=== PATIENT | male | born 1960 | race Caucasian/White ===

== ENCOUNTER 2016-11-26 18:47 | Inpatient (IN) | payer OTHER ==
[2016-11-26] MEDS ORDERED: SODIUM CHLORIDE 0.9% 1,000 ML IV STA ×3 (21:45→23:22)
[2016-11-26] MEDS ORDERED: SODIUM CHLORIDE 0.9% 500 ML IV STA (21:45)
[2016-11-26] MEDS ORDERED: ACETAMINOPHEN IV (For NPO) 1,000 MG in EMPTY BAG 1 BAG IVPB STA (21:45)
[2016-11-26] MEDS ORDERED: MORPHINE SULFATE 4 MG/ML SYRINGE IV STA (21:45)
[2016-11-26] MEDS ORDERED: KETOROLAC 30 MG/ML 1 ML VIAL IVP STA (21:45)
--- NOTE | 2016-11-26 21:52 | ED ---
General Adult HPI - General Chief complaint: Chest Pain Stated complaint: chest discomfort Time Seen by Provider: 11/26/16 21:21 Source: patient, RN notes reviewed, old records reviewed Mode of arrival: wheelchair Limitations: no limitations - History of Present Illness Initial comments: This is a 56-year-old male here for evaluation of chest pain, shortness of breath, elevated heart rate. Patient doesn't medical history significant for diabetes and hypertension. Initial cardiac evaluation years ago when he was initially diagnosed. Patient denies any sick contactsintravasation [place] drugs or alcohol. Patient does admit to increased cough and congestion, low- grade fever at home with chills. The heaviness and chest pressure started a few days ago and has been getting progressively worse. No significant modifying factors for symptoms - Related Data Home Medications Medication Instructions Recorded Confirmed Aspirin 81 mg PO DAILY 11/26/16 11/26/16 Cetirizine HCl [Zyrtec] 10 mg PO DAILY 11/26/16 11/26/16 Dapagliflozin/Metformin HCl 1 tab PO BID 11/26/16 11/26/16 [Xigduo Xr 5 mg-1,000 mg Tablet] Hydrochlorothiazide 12.5 mg PO DAILY 11/26/16 11/26/16 Liraglutide [Victoza 2-David] 0.6 mg SQ DAILY 11/26/16 11/26/16 Multivitamins, Thera [Multivitamin] 1 tab PO HS 11/26/16 11/26/16 Omeprazole 20 mg PO DAILY 11/26/16 11/26/16 Quinapril HCl 40 mg PO HS 11/26/16 11/26/16 Allergies Allergy/AdvReac Type Severity Reaction Status Date / Time hydrocodone [From [place]] Allergy Severe Anaphylaxis Verified 11/26/16 20:44 codeine Allergy Unknown Verified 11/26/16 20:44 Penicillins Allergy Nausea & Verified 11/26/16 20:44 Vomiting Review of Systems ROS Statement: Those systems with pertinent positive or pertinent negative responses have been documented in the HPI. ROS Other: All systems not noted in ROS Statement are negative. Past Medical History Past Medical History: Diabetes Mellitus, Hypertension History of Any Multi-Drug Resistant Organisms: None Reported Additional Past Surgical History / Comment(s): ear surgery Past Psychological History: No Psychological Hx Reported Smoking Status: Former smoker Past Alcohol Use History: None Reported Past Drug Use History: None Reported General Exam Limitations: no limitations General appearance: alert, in no apparent distress, anxious Head exam: Present: atraumatic, normocephalic, normal inspection Eye exam: Present: normal appearance, PERRL, EOMI. Absent: scleral icterus, conjunctival injection, periorbital swelling ENT exam: Present: normal exam, mucous membranes moist Neck exam: Present: normal inspection. Absent: tenderness, meningismus, lymphadenopathy Respiratory exam: Present: normal lung sounds bilaterally, accessory muscle use , decreased breath sounds. Absent: respiratory distress, wheezes, rales, rhonchi, stridor Cardiovascular Exam: Present: normal rhythm, tachycardia, normal heart sounds. Absent: systolic murmur, diastolic murmur, rubs, gallop, clicks GI/Abdominal exam: Present: soft, normal bowel sounds. Absent: distended, tenderness, guarding, rebound, rigid Extremities exam: Present: normal inspection, full ROM, normal capillary refill. Absent: tenderness, pedal edema, joint swelling, calf tenderness Back exam: Present: normal inspection Neurological exam: Present: alert, oriented X3, CN II-XII intact Psychiatric exam: Present: normal affect, normal mood Skin exam: Present: warm, dry, intact, normal color. Absent: rash Course Vital Signs 11/26/16 11/26/16 11/26/16 19:56 23:03 23:58 Temperature 101 F H 98.7 F Pulse Rate 120 H 114 H 110 H Respiratory 20 18 Rate Blood Pressure 140/84 114/75 O2 Sat by Pulse 93 L 93 L Oximetry 11/27/16 00:04 Temperature Pulse Rate 84 Respiratory Rate Blood Pressure O2 Sat by Pulse Oximetry - Reevaluation(s) Reevaluation #1: 11/27/16 00:47 Patient with no real improvement heart rate was symptomatically become fever did come down well Reevaluation #2: 11/27/16 00:47 Complaining of pain and symptoms are improving now, patient without chest pain Reevaluation #3: 11/27/16 00:47 Patient continue to have persistent tachycardia EKG Findings - EKG Comments: EKG Findings:: EKG shows sinus tachycardia rate 160, WV 132, QRS 80, QTC 453 Medical Decision Making - Medical Decision Making 50 formality ER for evaluation of (without chest pain and shortness of breath. Patient does have diabetes, patient is found of pneumonia with fever tachycardia and elevated white count. Patient given copious IV fluids treated appropriately for community-acquired pneumonia and will be admitted for coronary no pulmonary monitoring and hemodynamic monitoring - Lab Data Result diagrams: 11/26/16 21:10 11/26/16 21:10 Lab Results 11/26/16 11/26/16 11/26/16 Range/Units 21:10 21:10 21:10 WBC 14.5 H (3.8-10.6) k/uL RBC 4.97 (4.30-5.90) m/uL Hgb 14.6 (13.0-17.5) gm/dL Hct 44.5 (39.0-53.0) % MCV 89.7 (80.0-100.0) fL MCH 29.4 (25.0-35.0) pg MCHC 32.8 (31.0-37.0) g/dL RDW 13.4 (11.5-15.5) % Plt Count 359 (150-450) k/uL Neutrophils % 68 % Lymphocytes % 19 % Monocytes % 9 % Eosinophils % 2 % Basophils % 1 % Neutrophils # 9.9 H (1.3-7.7) k/uL Lymphocytes # 2.8 (1.0-4.8) k/uL Monocytes # 1.3 H (0-1.0) k/uL Eosinophils # 0.3 (0-0.7) k/uL Basophils # 0.1 (0-0.2) k/uL PT (9.0-12.0) sec INR (<1.1) APTT (22.0-30.0) sec D-Dimer (<0.60) mg/L FEU Sodium 139 (137-145) mmol/L Potassium 4.2 (3.5-5.1) mmol/L Chloride 100 (98-107) mmol/L Carbon Dioxide 25 (22-30) mmol/L Anion Gap 14 mmol/L BUN 19 (9-20) mg/dL Creatinine 0.90 (0.66-1.25) mg/dL Est GFR (MDRD) Af Amer >60 (>60 ml/min/1.73 sqM) Est GFR (MDRD) Non-Af >60 (>60 ml/min/1.73 sqM) Glucose 150 H (74-99) mg/dL Plasma Lactic Acid Rambo (0.7-2.0) mmol/L Calcium 9.4 (8.4-10.2) mg/dL Phosphorus 3.5 (2.5-4.5) mg/dL Magnesium 2.1 (1.6-2.3) mg/dL Total Bilirubin 1.2 (0.2-1.3) mg/dL AST 24 (17-59) U/L ALT 52 (21-72) U/L Alkaline Phosphatase 78 (38-126) U/L Total Creatine Kinase 98 (55-170) U/L CK-MB (CK-2) 0.4 (0.0-2.4) ng/mL CK-MB (CK-2) Rel Index 0.4 Troponin I <0.012 (0.000-0.034) ng/mL NT-Pro-B Natriuret Pep pg/mL Total Protein 7.0 (6.3-8.2) g/dL Albumin 3.9 (3.5-5.0) g/dL TSH 2.500 (0.465-4.680) mIU/L 11/26/16 11/26/16 11/26/16 Range/Units 21:10 21:10 21:10 WBC (3.8-10.6) k/uL RBC (4.30-5.90) m/uL Hgb (13.0-17.5) gm/dL Hct (39.0-53.0) % MCV (80.0-100.0) fL MCH (25.0-35.0) pg MCHC (31.0-37.0) g/dL RDW (11.5-15.5) % Plt Count (150-450) k/uL Neutrophils % % Lymphocytes % % Monocytes % % Eosinophils % % Basophils % % Neutrophils # (1.3-7.7) k/uL Lymphocytes # (1.0-4.8) k/uL Monocytes # (0-1.0) k/uL Eosinophils # (0-0.7) k/uL Basophils # (0-0.2) k/uL PT 10.8 (9.0-12.0) sec INR 1.1 (<1.1) APTT 24.8 (22.0-30.0) sec D-Dimer 0.21 (<0.60) mg/L FEU Sodium (137-145) mmol/L Potassium (3.5-5.1) mmol/L Chloride (98-107) mmol/L Carbon Dioxide (22-30) mmol/L Anion Gap mmol/L BUN (9-20) mg/dL Creatinine (0.66-1.25) mg/dL Est GFR (MDRD) Af Amer (>60 ml/min/1.73 sqM) Est GFR (MDRD) Non-Af (>60 ml/min/1.73 sqM) Glucose (74-99) mg/dL Plasma Lactic Acid Rambo 0.9 (0.7-2.0) mmol/L Calcium (8.4-10.2) mg/dL Phosphorus (2.5-4.5) mg/dL Magnesium (1.6-2.3) mg/dL Total Bilirubin (0.2-1.3) mg/dL AST (17-59) U/L ALT (21-72) U/L Alkaline Phosphatase (38-126) U/L Total Creatine Kinase (55-170) U/L CK-MB (CK-2) (0.0-2.4) ng/mL CK-MB (CK-2) Rel Index Troponin I (0.000-0.034) ng/mL NT-Pro-B Natriuret Pep 81 pg/mL Total Protein (6.3-8.2) g/dL Albumin (3.5-5.0) g/dL TSH (0.465-4.680) mIU/L - Radiology Data Radiology results: report reviewed (Chest x-ray two-view is positive for pneumonia right middle), image reviewed Critical Care Time Critical Care Time: Yes Total Critical Care Time: 31 Disposition Clinical Impression: Community acquired pneumonia, SIRS (systemic inflammatory response syndrome), Sepsis Disposition: ADMITTED IP TO THIS [facility] Condition: Fair Referrals: Nonstaff,Physician [Primary Care Provider] - 1-2 days
[2016-11-26 22:34] LABS: Basophils # (A) 0.1 k/uL (0-0.2); Basophils % (A) 1 %; CH 30.2; CHCM 33.8; Eosinophils # (A) 0.3 k/uL (0-0.7); Eosinophils % (A) 2 %; HCT 44.5 % (39.0-53.0); HDW 2.63; HGB 14.6 gm/dL (13.0-17.5); Luc % (Auto) 1; Lymphocytes # (A) 2.8 k/uL (1.0-4.8); Lymphocytes % (A) 19 %; MCH 29.4 pg (25.0-35.0); MCHC 32.8 g/dL (31.0-37.0); MCV 89.7 fL (80.0-100.0); Mean Platelet Volume 8.2; Monocytes # (A) 1.3 k/uL (0-1.0); Monocytes % (A) 9 %; Neutrophils # (A) 9.9 k/uL (1.3-7.7); Neutrophils % (A) 68 %; RBC 4.97 m/uL (4.30-5.90); RDW 13.4 % (11.5-15.5); WBC 14.5 k/uL (3.8-10.6); WBC (Perox) 13.97
[2016-11-26 22:44] LABS: ALT 52 U/L (21-72); AST 24 U/L (17-59); Alkaline Phosphatase 78 U/L (38-126); Anion Gap 14 mmol/L; Blood Urea Nitrogen 19 mg/dL (9-20); Calcium 9.4 mg/dL (8.4-10.2); Carbon Dioxide 25 mmol/L (22-30); Chloride 100 mmol/L (98-107); Glucose 150 mg/dL (74-99); Magnesium 2.1 mg/dL (1.6-2.3); Non-African American GFR(MDRD) >60 (>60 ml/min/1.73 sqM); Phosphorous 3.5 mg/dL (2.5-4.5); Potassium 4.2 mmol/L (3.5-5.1); Sodium 139 mmol/L (137-145); Total Bilirubin 1.2 mg/dL (0.2-1.3)
[2016-11-26 22:47] LABS: Creatine Kinase 98 U/L (55-170)
[2016-11-26 22:51] LABS: INR 1.1 (<1.1); Partial Thromboplastin Time 24.8 sec (22.0-30.0); Prothrombin Time 10.8 sec (9.0-12.0)
[2016-11-26 23:01] LABS: Creatine Kinase MB 0.4 ng/mL (0.0-2.4); Troponin I <0.012 ng/mL (0.000-0.034)
[2016-11-26] MEDS ORDERED: IPRATROPIUM-ALBUTEROL 3 ML NEB INHALATION STA ×2 (23:22→23:53)
[2016-11-26] MEDS ORDERED: ALBUTEROL NEB (CONC) 2.5 MG/0.5 ML INHALATION STA (23:53)
[2016-11-27] MEDS ORDERED: SODIUM CHLORIDE 0.9% 1,000 ML IV STA ×2 (00:44)
[2016-11-27] MEDS ORDERED: ACETAMINOPHEN TAB 325 MG TAB PO PRN (00:44)
[2016-11-27] MEDS ORDERED: SODIUM CHLORIDE 0.9% 500 ML IV STA (00:44)
[2016-11-27] MEDS ORDERED: IBUPROFEN 600 MG TAB PO PRN (00:44)
[2016-11-27] MEDS ORDERED: IPRATROPIUM-ALBUTEROL 3 ML NEB INHALATION PRN (00:45)
[2016-11-27] MEDS ORDERED: PNEUMONIA PROTOCOL UTILIZED 1 EACH MISC PO PRN (00:45)
[2016-11-27] MEDS ORDERED: LEVOFLOXACIN 750MG-D5W PMX 750 MG in DEXTROSE/WATER 1 150ML.BAG IVPB STA (00:45)
--- NOTE | 2016-11-27 01:30 | XR ---
EXAMINATION TYPE: XR chest 2V DATE OF EXAM: 11/26/2016 10:57 PM COMPARISON: NONE HISTORY: Fever, chest pain and weakness TECHNIQUE: Frontal and lateral views of the chest are obtained. FINDINGS: Mild atelectasis is suggested in both lung bases. No definite focal pneumonia pneumothorax or pleural effusion is noted. Mild pulmonary vascular congestion is suggested. The cardiac silhouette size is within normal limits. Mild old compression deformities are noted in th e thoracic vertebrae. IMPRESSION: 1. Mild atelectasis in both lung bases. 2. No definite focal pneumonia.
[2016-11-27 01:32] LABS: Appearance,Urine Clear (Clear); Bilirubin,Urine Negative (Negative); Glucose,Urine (UA) 4+ (Negative); Leukocyte Esterase,Urine Negative (Negative); Nitrite,Urine Negative (Negative); PH, Urine 5.5 (5.0-8.0); Protein,Urine Trace (Negative); Specific Gravity,Urine 1.032 (1.001-1.035); UA Billing (MACRO vs. MICRO) CHEM; Urobilinogen,Urine <2.0 mg/dL (<2.0)
[2016-11-27 01:40] LABS: Ketones,Urine 2+ (Negative)
[2016-11-27 02:16] VITALS: BMI 43.2
[2016-11-27 06:58] LABS: Glucose,Whole Blood 165 mg/dL (75-99)
[2016-11-27] MEDS ORDERED: INSULIN LISPRO (humaLOG) 300 UNIT/3 ML VIAL SQ SCH (07:30)
[2016-11-27 07:38] VITALS: PULSE 101
[2016-11-27] MEDS ORDERED: ENOXAPARIN 40 MG/0.4 ML SYRINGE SQ SCH (09:00)
[2016-11-27 10:48] LABS: Hemoglobin A1C 8.2 % (4.2-6.1)
[2016-11-27 11:02] LABS: Glucose,Whole Blood 179 mg/dL (75-99)
--- NOTE | 2016-11-27 12:16 | P.CNPUL ---
History of Present Illness Consult date: 11/27/16 Reason for consult: chest pain Chief complaint: Chest pain History of present illness: 56-year-old gentleman who was seen in the emergency room yesterday because of chest pain and some mild shortness of breath and elevated heart rate. His was thinking that maybe he had a heart attack and she suggested that he go to the ER to be evaluated. He does have a history of diabetes hypertension. He was evaluated there and thought not to have an VT was admitted with a diagnosis of possible pneumonia. He really does not have any pneumonic symptoms. Denies any cough phlegm production. Not short of breath. Not wheezing. Not coughing up any phlegm. No fever no chills. He apparently did have one low grade temperature at home. He did not measure his temperature just felt warm. Denies any chills. No nausea vomiting or diarrhea. Completely symptom-free at this time. He does have a history of diabetes and hypertension. Former smoker. Does not smoke currently. No other major medical problems. Review of Systems A 12 point review of systems is primarily positive for chest pain. That has some no longer present. He denies all primary complaints at this time include shortness of breath cough phlegm production chest congestion and fever chills, etc. Past Medical History Past Medical History: Diabetes Mellitus, Hypertension History of Any Multi-Drug Resistant Organisms: None Reported Additional Past Surgical History / Comment(s): ear surgery, FINGER SURGERY Past Anesthesia/Blood Transfusion Reactions: No Reported Reaction Past Psychological History: No Psychological Hx Reported Smoking Status: Former smoker Past Alcohol Use History: None Reported Past Drug Use History: None Reported - Past Family History Mother Family Medical History: Congestive Heart Failure (CHF) Father Family Medical History: Hypertension Medications and Allergies Home Medications Medication Instructions Recorded Confirmed Type Aspirin 81 mg PO DAILY 11/26/16 11/26/16 History Cetirizine HCl [Zyrtec] 10 mg PO DAILY 11/26/16 11/26/16 History Dapagliflozin/Metformin HCl 1 tab PO BID 11/26/16 11/26/16 History [Xigduo Xr 5 mg-1,000 mg Tablet] Hydrochlorothiazide 12.5 mg PO DAILY 11/26/16 11/26/16 History Liraglutide [Victoza 2-David] 0.6 mg SQ DAILY 11/26/16 11/26/16 History Multivitamins, Thera [Multivitamin] 1 tab PO HS 11/26/16 11/26/16 History Omeprazole 20 mg PO DAILY 11/26/16 11/26/16 History Quinapril HCl 40 mg PO HS 11/26/16 11/26/16 History Allergies Allergy/AdvReac Type Severity Reaction Status Date / Time hydrocodone [From [place]] Allergy Severe Anaphylaxis Verified 11/26/16 20:44 codeine Allergy Unknown Verified 11/26/16 20:44 Penicillins Allergy Nausea & Verified 11/26/16 20:44 Vomiting Physical Exam Osteopathic Statement: *. No significant issues noted on an osteopathic structural exam other than those noted in the History and Physical/Consult. Vitals: Vital Signs Temp Pulse Pulse Pulse Resp BP BP 11/27/16 07:00 98 F 101 H 18 126/96 11/27/16 03:21 103 H 11/27/16 02:18 98.8 F 113 H 18 131/82 11/27/16 01:27 98.4 F 106 H 18 124/72 Pulse Ox 11/27/16 07:00 98 11/27/16 03:21 11/27/16 02:18 93 L 11/27/16 01:27 96 Intake and Output 11/26/16 11/27/16 11/27/16 22:59 06:59 14:59 Intake Total 240 Balance 240 Intake: Oral 240 Other: Voiding Method Toilet Weight 128.82 kg No acute distress, oriented 3. HEENT examination is grossly unremarkable. Mucous membranes are moist. There are no oral lesions. Neck supple. Full range of motion. No adenopathy or thyromegaly. Cardiovascular examination reveals regular rhythm rate. S1-S2 normal. No S3- S4 or murmur. Lungs are clear breath sounds are equal. No wheezes or rhonchi. Abdomen soft bowel sounds are heard. Extremities are intact. Results - Laboratory Findings CBC and BMP: 11/26/16 21:10 11/26/16 21:10 PT/INR, D-dimer PT 10.8 sec (9.0-12.0) 11/26/16 21:10 INR 1.1 (<1.1) 11/26/16 21:10 D-Dimer 0.21 mg/L FEU (<0.60) 11/26/16 21:10 Abnormal lab findings: Abnormal Labs 11/27/16 11/27/16 11/27/16 01:15 06:50 10:58 POC Glucose (mg/dL) 165 H 179 H Urine Protein Trace H Urine Glucose (UA) 4+ H Urine Ketones 2+ H - Diagnostic Findings Chest x-ray: image reviewed Assessment and Plan (1) Chest pain Status: Acute Plan: Plan dated 11/27/2016 The patient seems be doing relatively well. Would like to be discharged home. Has no pulmonary complaints. No additional chest pain. Chest x-ray does not suggest pneumonia. Additional recommendations suggestions are forthcoming. I' ll leave it up to the primary. We will discharge the patient only on a short course of antibiotics if anything at all. Time with Patient: Greater than 30
[2016-11-27 14:01] VITALS: BP 142/83; RESP 16; TEMP 98.1
[2016-11-28] MEDS ORDERED: LEVOFLOXACIN 750MG-D5W PMX 750 MG in DEXTROSE/WATER 1 150ML.BAG IVPB SCH (09:00)
--- NOTE | 2016-11-28 12:39 | HP ---
DATE OF ADMISSION: CHIEF COMPLAINT: Chest pain and cough and congestion. HISTORY OF PRESENT ILLNESS: This 56-year-old gentleman with a past medical history of multiple the hip including diabetes, hypertension, history of nicotine dependence, who presented to [facility] with complaints of chest pain. The patient also had cough and congestion. Pain is in the anterior part of the chest which is vague, and patient was admitted for further evaluation and treatment. The patient after the patient improved significantly. The possibility of the chest x-ray was done on admission which showed possible mild atelectasis in both lung bases. There is no history of fever, rigors or chills. No history of headache, loss of consciousness or seizures. Past medical history of diabetes, hypertension. Medications prior to admission include home medications are: 1. Quinapril 40 mg q.6. 2. Omeprazole 40. 3. Multivitamins one p.o. daily. 4. Victoza. 5. Hydrochlorothiazide. 6. Xagdo. 8. Aspirin. ALLERGIES: HYDROCODONE, CODEINE AND PENICILLIN. FAMILY HISTORY: History of seizure in the family. SOCIAL HISTORY: Previous history of smoking. No history of current smoking ( ) alcohol. REVIEW OF SYSTEMS: HEENT: No diminished vision, no diminished hearing. CARDIOVASCULAR: As mentioned earlier. RESPIRATORY: As mentioned earlier. GI: No nausea or vomiting. : No dysuria. Nervous system: No numbness weakness. ALLERGY/IMMUNOLOGY: No asthma or hayfever. MUSCULOSKELETAL: As mentioned earlier. HEMATOLOGY/ONCOLOGY: No history of anemia. ENDOCRINE: No history of diabetes or hypothyroidism. CONSTITUTIONAL: as mentioned earlier. DERMATOLOGY: Negative. RHEUMATOLOGY: Negative. PSYCHIATRY: As mentioned earlier. PHYSICAL EXAMINATION: GENERAL: The patient is alert and oriented times three. VITAL SIGNS: Pulse 113, blood pressure 131/82, respiratory rate 18. Temperature 98.8. Pulse ox 93% on room air. HEENT: Conjunctivae normal. NECK: No jugular venous distention. CARDIOVASCULAR: S1, S2 muffled. No S3, no S4. RESPIRATORY: Breath sounds diminished at the bases. A few scattered rhonchi. No crackles. ABDOMEN: Soft. Nontender. No mass palpable. LEGS: No edema. No swelling. CENTRAL NERVOUS SYSTEM: Higher functions as mentioned earlier. Moves all four limbs. No focal deficits. LYMPHATICS: No lymph nodes palpable in the neck, axillae or groin. SKIN: No ulcer, rash or bleeding. LABS: At this time shows WBC 14.5. Other labs are noted. TSH 2.500. ASSESSMENT: 1. Acute bronchitis, purulent tracheobronchitis with chest pain, possibly musculoskeletal. 2. Increased WBC. 3. Diabetes mellitus type 2. 4. Hypertension. 5. History of nicotine dependence. RECOMMENDATIONS AND DISCUSSION: In this 56 -year-old gentleman who presented with multiple medical problems, we will monitor the patient closely. Continue the current medications, continue symptomatic treatment. Pulmonary consultation, bronchodilators, antibiotics, steroids. Guarded prognosis because of multiple complex medical issues. Further recommendations to follow. MTDD
--- NOTE | 2016-11-28 16:14 | DS ---
DATE OF ADMISSION: 11/27/2016 DATE OF DISCHARGE: 11/27/2016 FINAL DIAGNOSES: 1. Acute purulent tracheobronchitis with chest pain. 2. Hypertension. 3. Diabetes mellitus type 2. 4. Remote history of nicotine dependence. 5. Chest pain, possibly musculoskeletal, pleuritic. DISCHARGE DISPOSITION: The patient will be discharged in stable condition with guarded prognosis. Dr. Bond cleared the patient for discharge. HISTORY OF PRESENT ILLNESS: This 56 -year-old gentleman with past medical history of multiple medical issues with history of chest pain, cough, bronchitis diagnosed and acute purulent tracheobronchitis was diagnosed and the patient was symptomatic treatment. Dr. Bond cleared the patient for discharge. The patient is being discharged in stable condition with guarded prognosis. ADVICE AND MEDICATIONS: 1. Diet is cardiac. 2. Activity limited until follow-up. 3. Follow up with the primary physician in 2 to 3 days. 4. Medications Ecotrin 81 mg daily. 5. Zithromax 250 mg daily for six days. 6. Symbicort 160/4.5 two puffs b.i.d. 7.zyretic 10 mg daily. 8. Xiguo 1 tablet p.o. b.i.d. 9. Hydrochlorothiazide 12.5 mg. 10. Combivent 2 puffs q.i.d. and p.r.n. 11. Victoza 2 packs 0.6 daily. 12. Multivitamin 1 daily. 13. Omeprazole 20 mg daily. 14. Quinapril 40 mg q6h p.r.n. 15. Prednisone taper 40 mg daily for 3 days, 30 for 3 days, 20 for 3 days, 10 for 3 days and then stop. 16. Follow up with Dr. Garcia in two to three days. 17. Follow-up with Dr. Bond as advised. Once again, the patient will be discharged in stable condition with guarded prognosis. [facility]
== END 2016-11-27 17:04 | disposition home or self-care (01) | DRG 203 ==
LOC: EC 18:47 → 3SUR 11-27 00:47
PROVIDERS: ADMIT Hospitalist; ATTEND Hospitalist
DX: J20.9 Acute bronchitis, unspecified (principal); I10 Essential (primary) hypertension; E11.9 Type 2 diabetes mellitus without complications; Z79.82 Long term (current) use of aspirin; Z82.49 Family history of ischemic heart disease and other diseases of the circulatory system; Z87.891 Personal history of nicotine dependence; Z79.899 Other long term (current) drug therapy; Z88.5 Allergy status to narcotic agent; Z88.0 Allergy status to penicillin
CPT/HCPCS: 36415; 71020; 80053; 81003; 82550; 82553; 83036; 83605; 83735; 83880; 84100; 84443; 84484; 85025; 85379; 85610; 85730; 87040; 87086; 93005; 94640; 96365; 96375; 99291